=== PATIENT | female | born 1965 ===

== ENCOUNTER 2023-05-24 22:19 | Emergency (ER) | payer OTHER, MEDICARE, SELFPAY ==
[2023-05-24 22:33] VITALS: BP 145/79; BP 152/82; PULSE 78; PULSE 81; RESP 14; TEMP 36.9; O2SAT 96; O2SAT 98; BMI 42.9
[2023-05-24 22:41] VITALS: BP 145/79; PULSE 81; RESP 14; TEMP 36.9; O2SAT 96
--- NOTE | 2023-05-24 22:44 | PC.NURSE ---
Pt ca&ox3, no signs of distress. Pt presents to the ED d/t a fall one day ago pain getting progressively worse. Pt reports 10/10 overall pain as well as left sided hip pain. Pt also reports bilateral cellulitis in legs, to which visiting nurse stated today looked infected. wctm.
--- NOTE | 2023-05-24 23:19 | ED.FALL ---
HPI - Fall General Chief Complaint: Fall Stated Complaint: chronic hip pain, fall yest, per ems Time Seen by Provider: 05/24/23 22:28 Source: patient Mode of arrival: EMS History of Present Illness HPI Narrative: 58-year-old female who arrives via EMS and states that she fell yesterday at home without head strike and states that she fell onto her left side and has left-sided hip pain that is new for her, she does walk with crutches at baseline and has chronic bilateral lymphedema. Patient states she is able to ambulate with her crutches as normal but the left hip pain is new. Patient states that her [facility] arrived to change her dressings on her legs and had some concerns about the left lower extremity appearing somewhat infected. Patient then stated that this occurred on Saturday but she was unable to come into the emergency room until today. She has recently arrived from [place] is currently living in a motel while awaiting placement in an apartment. Related Data Allergies Allergy/AdvReac Type Severity Reaction Status Date / Time latex Allergy Rash Verified 05/24/23 22:59 Review of Systems Review of Systems: Pertinent positives and negatives as stated HPI [facility] Past Medical History Source: nursing notes reviewed Social History Social History Smoked in Last 30 Days: Yes Use of substances other than those prescribed or required for medical reasons: No Advance Directives: No Advance Directives Information Provided: No Physical Exam Vital Signs: Vital Signs: Last Vital Signs Temp 98.4 F 05/24/23 22:41 Pulse 81 05/24/23 22:41 Resp 14 05/24/23 22:41 BP 145/79 H 05/24/23 22:41 Pulse Ox 96 05/24/23 22:41 O2 Del Method Room Air 05/24/23 22:41 BMI result Body Mass Index 42.9 VITAL SIGNS: Reviewed. GENERAL: Appears older than stated age, chronically ill, in no acute distress. HEAD: Normocephalic/atraumatic EYES: PERRLA, EOMI EARS: Ext canals without abnormality NOSE: Nares patent bilateral OROPHARYNX: no oral lesions noted, posterior pharynx clear NECK: Supple, no adenopathy LUNGS: Normal breath sounds. No adventitious sounds or accessory muscle use. SpO2<96> CARDIOVASCULAR: Regular rate and rhythm without noted murmurs ABDOMEN: Soft, non-tender, non-distended with bowel sounds. MUSCULOSKELETAL: No tenderness, deformities, or effusions noted on gross inspection. EXTREMITIES: No cyanosis, clubbing or edema; BILATERAL LOWER EXTREMITIES: Dressings in place with obvious chronic lymphedema noted to the dorsum of bilateral feet SKIN: Inspection of the skin reveals no rashes NEUROLOGIC: Alert and oriented x 4. Strength and sensation to light touch were grossly intact x 4. Medical Decision Making Medical Decision Making MDM Narrative: 58-year-old female with history and clinical presentation that patient is concerned about left hip pain, will proceed with x-rays to evaluate with possible hip fracture versus less likely dislocation/most likely chronic. In addition, will take down dressings to bilateral lower extremities to evaluate for evidence to suggest infection. Patient is afebrile. I evaluated patient's bilateral lower extremities after the dressings were removed, there is no evidence consistent with cellulitis, compartments are soft mildly erythematous but this appears to be likely secondary to medication and the compression system that is being used for her lymphedema. X-ray of the hip is without acute fracture and otherwise my interpretation is in agreement with radiology's impression. Patient is otherwise discharged home in stable condition. Differential Diagnosis Please see the discussion above Admission/Observation Consideration of admission/observation: Escalation of care including admission/observation considered Lab Data Please see the discussion above Discharge Plan Discharge Clinical Impression: Hip pain, left, Lymphedema Patient Disposition: Home, Self-Care Instructions: Lymphedema (ED), Hip Pain (ED) Additional Instructions: 1. Resume all home medications as prescribed. I recommend [id number] Tylenol/ibuprofen as needed for pain control. 2. Please direct your visiting nurse to cleanse both of your legs with soap and water prior to re-application barrier medication and compression wraps. Return to the ER for any worsening symptoms.
--- NOTE | 2023-05-24 23:53 | MHC.EDTECH ---
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
--- NOTE | 2023-05-24 23:54 | MHC.EDTECH ---
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
--- NOTE | 2023-05-25 01:22 | PC.NURSE ---
Pt ambulated with crutches to restroom. wctm.
== END 2023-05-25 02:28 | disposition home or self-care (01) ==
PROVIDERS: Emergency Provider Student in an Organized Health Care Education/Training Program
DX: M25.552 Pain in left hip (principal); I89.0 Lymphedema, not elsewhere classified
CPT/HCPCS: 73502; 99283; 99284